=== PATIENT | female | born 1985 | race Caucasian/White ===

== ENCOUNTER 2017-11-25 05:32 | Emergency (ER) | END 2017-11-25 11:21 | disposition home or self-care (01) ==

== ENCOUNTER 2018-06-30 05:59 | Day surgery (SDC) | END 2018-06-30 12:35 | disposition home or self-care (01) ==

== ENCOUNTER 2018-10-14 10:02 | Emergency (ER) | END 2018-10-14 11:48 | disposition home or self-care (01) ==